=== PATIENT | female | born 1995 | race Caucasian/White ===

== ENCOUNTER 2017-01-15 19:54 | Emergency (ER) | payer OTHER ==
[~2017-01-15] VITALS: Ht 160 cm; Wt 92.5 kg
[~2017-01-15 19:54] MED LIST: HYDR-3498 PO; NAPR-260 PO
[2017-01-15 19:59] VITALS: Ht 160 cm; Wt 92.5 kg
[2017-01-15] MEDS ORDERED: CEPH-443 PO (22:18)
[2017-01-15] MEDS ORDERED: SULF1TAB31 PO (22:18)
[2017-01-15 22:26] VITALS: BP 138/78; PULSE 72; RESP 20; TEMP 98.6
--- NOTE | 2017-01-15 23:52 | ERD ---
ER Documentation Chief Complaint Date/Time DATE: 01/15/17 TIME: 23:50 Chief Complaint both axillary abscess HPI 21-year-old female complaining of bilateral abscesses to axilla. Patient states she has had this before needed incision and drainages. Patient denies fever. Sites have been present for the last week. Denies any numbness or tingling or swelling to her arms. ROS All systems reviewed and are negative except as per history of present illness. Medications Home Meds Active Scripts Sulfamethoxazole/Trimethoprim* (Bactrim Ds* Tablet) 1 Each Tablet, 1 TAB PO BID , #14 TAB Prov:DAREN MCKINLEY PA-C 01/15/17 Cephalexin* (Keflex*) 500 Mg Capsule, 500 MG PO QID for 7 Days, CAP Prov:DAREN MCKINLEY PA-C 01/15/17 Naproxen* (Naprosyn*) 500 Mg Tablet, 500 MG PO BID Y for PAIN AND/OR INFLAMMATION, #30 TAB Prov:DAREN MCKINLEY PA-C 10/28/14 Hydrocodone Bit-Acetaminophen* ([place]*) 5-325 Mg Tab, 1 TAB PO Q6 Y for PAIN, # 7 TAB Prov:DAREN MCKINLEY PA-C 10/28/14 Allergies Allergies: Coded Allergies: No Known Allergies (Verified Allergy, Mild, 12/03/13) PMhx/Soc History of Surgery: Yes () Anesthesia Reaction: No Hx Neurological Disorder: No Hx Respiratory Disorders: No Hx Cardiac Disorders: No Hx Psychiatric Problems: No Hx Miscellaneous Medical Probl: No Hx Alcohol Use: Yes Hx Substance Use: No Hx Tobacco Use: No Smoking Status: Never smoker Physical Exam Vitals Vital Signs Date Time Temp Pulse Resp B/P Pulse Ox O2 Delivery O2 Flow Rate FiO2 01/15/17 22:26 98.6 72 20 138/78 98 Room Air 01/15/17 19:59 98.3 92 20 147/86 98 Physical Exam GENERAL: The patient is well-appearing, well-nourished, in no acute distress CHEST: Clear to auscultation bilaterally. There are no rales, wheezes or rhonchi. HEART: Regular rate and rhythm. No murmurs, clicks, rubs or gallops. No S3 or S4. EXTREMITIES: Equal pulses bilaterally. There is no peripheral clubbing, cyanosis or edema. No focal swelling or erythema. Full range of motion. Grossly neurovascularly intact. NEUROLOGIC: Alert and oriented. Cranial nerves II through XII intact. Motor strength in all 4 extremities with 5 out of 5 strength. Sensation grossly intact. Normal speech and gait. Babinski negative. DTR 2+ throughout. SKIN: 2 small pea-sized cyst sites of induration noted to bilateral axillae. No fluctuance. No pustules. No lymphatic streaking. HEMATOLOGIC AND LYMPHATIC: There is no evidence of excessive bruising or lymphadenopathy. No gross cervical, axillary, or inguinal lymphadenopathy. Procedures/MDM MDM: I have low suspicion for deep space tracking infection. Patient's vital signs are stable. Patient does not have any fluctuance on exam. Do not feel there is indication for incision and drainage at today's visit. Patient will be given antibiotics and recommended to use warm compresses on her axillae and return in 2 days for close evaluation. All questions answered at discharge. Departure Diagnosis: Primary Impression: Abscess Condition: Stable Patient Instructions: Abscess, Incision And Drainage Referrals: EL KAYLEN JENNINGS (PCP) Additional Instructions: FOLLOW UP WITH YOUR PRIMARY CARE PHYSICIAN TOMORROW.Return to this facility if you are not improving as expected. DAREN MCKINLEY PA-C Jan 15, 2017 23:52
== END 2017-01-15 22:26 | disposition home or self-care (01) ==
LOC: FTE 19:54
DX: L02.412 Cutaneous abscess of left axilla (principal); L02.411 Cutaneous abscess of right axilla
CPT/HCPCS: 99284

== ENCOUNTER 2017-01-17 18:19 | Emergency (ER) | payer OTHER ==
[~2017-01-17] VITALS: Ht 152.4 cm; Wt 92.5 kg
[~2017-01-17 18:19] MED LIST changes: +CEPH-443 PO; +SULF1TAB31 PO
[2017-01-17 18:24] VITALS: Ht 152.4 cm; Wt 92.5 kg
[2017-01-17] MEDS ORDERED: HYDR-906 PO (21:48)
[2017-01-17] MEDS ORDERED: IBUP-1542 PO (21:48)
[2017-01-17 21:58] VITALS: BP 133/71; PULSE 79; RESP 18; TEMP 98.8
--- NOTE | 2017-01-17 22:06 | ERD ---
ER Documentation Chief Complaint Date/Time DATE: 01/17/17 TIME: 22:03 Chief Complaint cysts bilateral armpits are worse HPI 21-year-old female presents here in emergency department for reevaluation, patient has bumps and bilateral armpits, was diagnosed to have soft tissue abscesses on affected area, complicated folliculitis. Patient is currently taking Bactrim and Keflex, and only taking the medication for a day. Patient wasn't reevaluated since she continues to have the pain. Patient discussed the pain as throbbing pain, 4/and scale, worse upon touching the area. Patient denies any open wounds. Patient denies any fever or chills. Patient did not take any medications for pain. ROS All systems reviewed and are negative except as per history of present illness. Medications Home Meds Active Scripts Ibuprofen* (Motrin*) 600 Mg Tab, 600 MG PO Q6H Y for PAIN AND OR ELEVATED TEMP, #30 TAB Prov:WIL BONDS NP 01/17/17 Hydrocodone/Acetaminophen ([place] 5-325 Tablet) 1 Each Tablet, 1 TAB PO Q6H Y for PAIN, #20 TAB Prov:WIL BONDS NP 01/17/17 Sulfamethoxazole/Trimethoprim* (Bactrim Ds* Tablet) 1 Each Tablet, 1 TAB PO BID , #14 TAB Prov:DAREN MCKINLEY PA-C 01/15/17 Cephalexin* (Keflex*) 500 Mg Capsule, 500 MG PO QID for 7 Days, CAP Prov:DAREN MCKINLEY PA-C 01/15/17 Naproxen* (Naprosyn*) 500 Mg Tablet, 500 MG PO BID Y for PAIN AND/OR INFLAMMATION, #30 TAB Prov:DAREN MCKINLEY PA-C 10/28/14 Hydrocodone Bit-Acetaminophen* ([place]*) 5-325 Mg Tab, 1 TAB PO Q6 Y for PAIN, # 7 TAB Prov:DAREN MCKINLEY PA-C 10/28/14 Allergies Allergies: Coded Allergies: No Known Allergies (Verified Allergy, Mild, 12/03/13) PMhx/Soc History of Surgery: Yes () Anesthesia Reaction: No Hx Neurological Disorder: No Hx Respiratory Disorders: No Hx Cardiac Disorders: No Hx Psychiatric Problems: No Hx Miscellaneous Medical Probl: No Hx Alcohol Use: Yes Hx Substance Use: No Hx Tobacco Use: No Smoking Status: Never smoker FmHx Family History: No coronary disease, No diabetes, No other Physical Exam Vitals Vital Signs Date Time Temp Pulse Resp B/P Pulse Ox O2 Delivery O2 Flow Rate FiO2 01/17/17 21:58 98.8 79 18 133/71 100 Room Air 01/17/17 18:24 99.8 82 18 162/74 100 Physical Exam GENERAL: The patient is well developed and appropriate for usual state of health, in no apparent distress. CHEST: Clear to auscultation bilaterally. There are no rales, wheezes or rhonchi. HEART: Regular rate and rhythm. No murmurs, clicks, rubs or gallops. No S3 or S4. ABDOMEN: Soft, nontender and nondistended. Good bowel sounds. No rebound or guarding. No gross peritonitis. No gross organomegaly or masses. No Hernandez sign or McBurney point tenderness. BACK: No midline or flank tenderness. EXTREMITIES: Equal pulses bilaterally. There is no peripheral clubbing, cyanosis or edema. No focal swelling or erythema. Full range of motion. Grossly neurovascularly intact. NEURO: Alert and oriented. Cranial nerves 2-12 intact. Motor strength in all 4 extremities with 5/5 strength. Sensation grossly intact. Normal speech and gait. SKIN: Noted 1.5 cm induration on the right armpit and left armpit, no fluctuance noted, no erythema noted. Mild tenderness on palpation. There is no apparent ecchymosis or petechia. The skin is warm and dry. HEMATOLOGIC AND LYMPHATIC: There is no evidence of excessive bruising or lymphedema. No gross cervical, axillary, or inguinal lymphadenopathy. Procedures/MDM Medical decision making: Patient has soft tissue abscesses, most likely complicated folliculitis. At this time, it is not fluctuant, incision and drainage is not indicated at this time, patient hasn't been only taking antibiotics for 1 day. Patient was advised to continue taking antibiotics. Patient was also given pain medication since she hasn't taken any medications for pain and is the reason that she is back here in emergency department. Patient does not have the symptoms of sepsis at this time, no cellulitis noted. Patient was given 4 [place], ibuprofen, Zofran for follow-up in 2 days if symptoms are no better or worse. Patient is advised to return sooner for any worsening symptoms. Disposition: Home. Stable. Departure Diagnosis: Primary Impression: Abscess Additional Impression: Encounter for wound re-check Condition: Stable Patient Instructions: Abscess, Antiobiotic Treatment Only Referrals: EL PROYECTO TOÑO VILLARREAL (PCP) Additional Instructions: continue bactrim and keflex, return if not better or worst in 2 days WIL BONDS NP Jan 17, 2017 22:06
== END 2017-01-17 22:01 | disposition home or self-care (01) ==
LOC: FTE 18:19
DX: L02.411 Cutaneous abscess of right axilla (principal); L02.412 Cutaneous abscess of left axilla; Z48.01 Encounter for change or removal of surgical wound dressing
CPT/HCPCS: 99283